=== PATIENT | male | born 1975 | race Caucasian/White ===

== ENCOUNTER 2022-05-17 13:31 | Emergency (ER) | payer OTHER ==
[~2022-05-17] VITALS: Ht 177.8 cm; Wt 90.7 kg
--- NOTE | 2022-05-17 14:00 | NUR ---
SEEN BY DR VILLELA
[2022-05-17] MEDS ORDERED: FLUORESCEIN SODIUM OPHTH 1 EA STRIP ONE (14:10)
--- NOTE | 2022-05-17 14:10 | NUR ---
BIBS C/O RIGHT EYE DISCOMFORT 03/24 SINCE YESTERDAY S/P METAL OBJECT WENT IN EYES WHILE GRINDING METAL. DENIES HAVING CHANGE IN VISION. WILL CONTINUE TO MONITOR THE PATIENT.
[2022-05-17] MEDS ORDERED: FLUORESCEIN SODIUM OPHTH 1 EA STRIP RIGHTEYE ONE (14:30)
--- NOTE | 2022-05-17 14:50 | NUR ---
Patient does not wish to proceed with medical care recommended by Dr. España. Patient given information related to possible complications, up to and including , which could occur as a result of leaving the hospital at this time. Patient verbalizes understanding of risks involved due to leaving against medical advice. Patient refused to sign AMA form.
[2022-05-17 15:10] VITALS: BP 138/88
== END 2022-05-17 15:10 | disposition left against medical advice (07) ==
LOC: ER 13:39
DX: H57.89 Other specified disorders of eye and adnexa (principal)